=== PATIENT | female | born 1945 | race Caucasian/White ===

== ENCOUNTER 2018-11-23 18:29 | Inpatient (IN) | payer MEDICAID, MEDICARE ==
[~2018-11-23] VITALS: Ht 154.9 cm; Wt 88.9 kg
[2018-11-23] MEDS ORDERED: IV NS 0.9% 500 ML BAG IV ONE (19:00)
--- NOTE | 2018-11-23 19:00 | NUR ---
PT BROUGHT IN FROM HOME BY PARAMEDICS FOR SOB PT RUBBING CHEST GASPING FOR AIR WILL MONITOR AND IMPLEMENT ALL MD ORDERS
[2018-11-23 19:12] LABS: BASOPHILS # (AUTO) 0.1 /CMM (0.0-0.2); BASOPHILS % (AUTO) 0.6 % (0.0-2.0); EOSINOPHILS % (AUTO) 0.7 % (0.0-6.0); HEMATOCRIT 37 % (33-45); HEMOGLOBIN 12.3 g/dL (11.5-14.8); LYMPHOCYTES # (AUTO) 2.4 /CMM (0.8-4.8); LYMPHOCYTES % (AUTO) 26.2 % (20.0-44.0); MEAN CORPUSCULAR HGB CONC 33 g/dl (31.0-36.0); MEAN CORPUSCULAR VOLUME 96 fL (82-100); MONOCYTES # (AUTO) 0.8 /CMM (0.1-1.30); MONOCYTES % (AUTO) 9.1 % (2.0-12.0); NEUTROPHILS # (AUTO) 5.7 /CMM (1.8-8.9); NEUTROPHILS % (AUTO) 63.4 % (43.0-81.0); PLATELET COUNT (AUTO) 262 /CMM (150-450); RED BLOOD CELL COUNT(AUTO) 3.89 MIL/uL (4.0-5.2); WHITE BLOOD COUNT (AUTO) 9.1 K/uL (4.3-11.0)
[2018-11-23 19:23] LABS: CALCIUM, SERUM 9.5 mg/dL (8.5-10.1); CARBON DIOXIDE 28 mmol/L (21-32); CHLORIDE 104 mmol/L (98-107); CREATININE 0.8 mg/dL (0.6-1.3); GLUCOSE 91 mg/dL (74-106); POTASSIUM 3.6 mmol/L (3.5-5.1); SODIUM SERUM 138 mmol/L (136-145); UREA NITROGEN, BLOOD 15 mg/dL (7-18)
--- NOTE | 2018-11-23 19:25 | NUR ---
TECH AT BEDSIDE FOR EKG
--- NOTE | 2018-11-23 19:28 | NUR ---
RADIOLOGY AT BEDSIDE FOR XRAY
[2018-11-23 19:35] LABS: B-TYPE NATRIURETIC PEPTIDE 170 PG/ML (0-125)
--- NOTE | 2018-11-23 20:34 | NUR ---
GOT BED 109
--- NOTE | 2018-11-23 20:38 | NUR ---
[facility] PAGED
--- NOTE | 2018-11-23 21:18 | NUR ---
REPORT GIVEN TO ANA ROSA SMART FOR HYACINTH
[2018-11-23 22:00] VITALS: BP 203/85
--- NOTE | 2018-11-23 22:00 | NUR ---
CAFETERIA DIRECTOR NOTES RECEIVED PT FROM ER. PT A&OX4, CHINESE SPEAKING , PT PLACED ON TELE MONITOR SR, HR 80S. #20G IN L AC S/L. B/P ELEVATED. PT C/O FOR C/P 04/08. PT ORIENTED TO ROOM. ALL SAFETY PRECAUTIONS TAKEN, BED IN LOW AND LOCKED POSITION. CALL LIGHT WITH IN REACH. WILL CONT TO MONITOR.
[2018-11-23] MEDS ORDERED: ONDANSETRON HCL/PF 4 MG/2 ML VIAL IVP PRN (22:30)
[2018-11-23] MEDS ORDERED: ACETAMINOPHEN 325 MG TABLET PO PRN (22:30)
[2018-11-23] MEDS ORDERED: Z GUARD REMEDY 2 OZ OINT TP PRN (22:30)
[2018-11-23] MEDS ORDERED: MAGNESIUM HYDROXIDE 30 ML UDC PO PRN (22:30)
[2018-11-23] MEDS ORDERED: ZOLPIDEM TARTRATE 5 MG TABLET PO PRN (22:30)
[2018-11-23] MEDS: ATORVASTATIN 10 MG TABLET PO SCH (23:23)
[2018-11-23] MEDS: HYDROCODONE/APAP 5/325MG 1 EACH TABLET PO PRN (23:24)
[2018-11-23] MEDS: hydrALAZINE HCL IV 20 MG VIAL IV PRN (23:25)
[2018-11-23] MEDS ORDERED: ENOXAPARIN SODIUM 40 MG/0.4 ML DISP.SYRIN SQ SCH (23:30)
[2018-11-24] VITALS (8 sets, daily range): BP systolic 127–160; BP diastolic 55–78
[2018-11-24] MEDS: HYDROCODONE/APAP 5/325MG 1 EACH TABLET PO PRN (06:31)
--- NOTE | 2018-11-24 07:19 | NUR ---
RN CLOSING NOTES PT RESTING IN BED NO SIGNIFICANT CHANGE.ALL DUE MEDS GIVEN, ALL SAFETY PRECAUTION TAKEN. ALL NEEDS ANTICIPATED AND MET. WILL ENDORSE TO AM RN.
--- NOTE | 2018-11-24 08:00 | NUR ---
METAL BALER: pt.is A/Ox3, speaks Lithuanian, with [place] RT translation: chest pain in and out, now better 3-02/06, had fingers tingling, no headache, no legs pain, no SOB, no cough, no dizziness. No critical labs result reported. O2sat. over 95% on 2L n/c, SR, BP 148/76, Hdlz prn+, troponin is less 0.017, Ddimer1.24, DVT pump+, pt.is oriented for POC, waiting
[2018-11-24 08:36] LABS: BASOPHILS % (AUTO) 0.4 % (0.0-2.0); EOSINOPHILS % (AUTO) 0.7 % (0.0-6.0); HEMATOCRIT 36 % (33-45); HEMOGLOBIN 11.6 g/dL (11.5-14.8); LYMPHOCYTES # (AUTO) 1.3 /CMM (0.8-4.8); LYMPHOCYTES % (AUTO) 21.7 % (20.0-44.0); MEAN CORPUSCULAR HGB CONC 33 g/dl (31.0-36.0); MEAN CORPUSCULAR VOLUME 97 fL (82-100); MONOCYTES # (AUTO) 0.5 /CMM (0.1-1.30); MONOCYTES % (AUTO) 8.4 % (2.0-12.0); NEUTROPHILS % (AUTO) 68.8 % (43.0-81.0); PLATELET COUNT (AUTO) 235 /CMM (150-450); RED BLOOD CELL COUNT(AUTO) 3.68 MIL/uL (4.0-5.2); WHITE BLOOD COUNT (AUTO) 5.8 K/uL (4.3-11.0)
[2018-11-24 08:56] LABS: CALCIUM, SERUM 8.6 mg/dL (8.5-10.1); CARBON DIOXIDE 26 mmol/L (21-32); CHLORIDE 106 mmol/L (98-107); CREATININE 0.8 mg/dL (0.6-1.3); GLUCOSE 120 mg/dL (74-106); MAGNESIUM 2.2 mg/dL (1.8-2.4); PHOSPHORUS 4.2 mg/dL (2.5-4.9); POTASSIUM 4.1 mmol/L (3.5-5.1); SODIUM SERUM 140 mmol/L (136-145); UREA NITROGEN, BLOOD 15 mg/dL (7-18)
[2018-11-24] MEDS: ASPIRIN 81 MG TAB.CHEW PO SCH (08:59)
[2018-11-24 09:00] LABS: CHOLESTEROL 178 mg/dL (<200); HDL CHOLESTEROL 56 mg/dL (40-60); LDL 110 mg/dL (0-99); TRIGLYCERIDES 65 mg/dL (30-150)
[2018-11-24] MEDS ORDERED: UMEC1BLS INH (09:02)
[2018-11-24] MEDS ORDERED: ATOR10TA PO (09:02)
[2018-11-24] MEDS ORDERED: OMEP20CA10 PO (09:02)
[2018-11-24] MEDS ORDERED: ASPI-1152 PO (09:02)
[2018-11-24] MEDS ORDERED: LORA0.5T PO (09:02)
[2018-11-24] MEDS ORDERED: IRBE150T28 PO (09:02)
[2018-11-24] MEDS ORDERED: MELO-105 PO (09:02)
[2018-11-24] MEDS ORDERED: HYDR-4077 PO (09:02)
[2018-11-24] MEDS ORDERED: GABA-532 PO (09:02)
[2018-11-24] MEDS ORDERED: ERGO500040 PO (09:02)
[2018-11-24] MEDS ORDERED: FURO40TA5 PO (09:02)
[2018-11-24] MEDS ORDERED: POTA8TAB8 PO (09:02)
--- NOTE | 2018-11-24 09:10 | NUR ---
TELEGRAPHIC TYPEWRITER MECHANIC: is in room with [place] Island[place] ornamental ironworker, updated with pt.current condition, VS, see new orders
[2018-11-24] MEDS ORDERED: CT SWABBABLE VALVE TRANS SET 1 EA INFUS.SET MC ONE (09:47)
[2018-11-24] MEDS ORDERED: IOHEXOL-350 100 ML VIAL IV ONE (09:47)
[2018-11-24] MEDS ORDERED: IV NS 0.9% 250 ML IV ONE (09:47)
--- NOTE | 2018-11-24 10:57 | NUR ---
RN MASHA: CTA is done/tolerated well, notified pt.daughter re pt.current condition, VS, orders, POC
[2018-11-24] MEDS: PANTOPRAZOLE 40 MG TABLET.DR PO SCH (11:11)
[2018-11-24] MEDS: METOPROLOL TARTRATE 25 MG TABLET PO SCH ×2 (11:52→16:48)
--- NOTE | 2018-11-24 13:00 | NUR ---
RN MASHA: pt.daughter is in room, updated with VS, orders, CTA done, POC, meds
--- NOTE | 2018-11-24 13:43 | NUR ---
RN MASHA: pt.denies any pain by British translation. DIANE Mccann notified re pt.history, VS, orders, labs, CTA, pt.daughter needs to speak regarding POC/got her phone#, works with DIANE Moore today
--- NOTE | 2018-11-24 14:24 | NUR ---
RN MASHA: Oscar OIL AND GAS EXPLORATION TECHNICIAN is in room, updated with all above, called/spoke with pt.daughter
--- NOTE | 2018-11-24 17:15 | NUR ---
RN MASHA: pt.is rest, no pain, no c/o, no SOB, SR, O2sat. over 94%, SBP over 100 below 160, PM care done by BENEFITS MANAGER reported, refused to use legs DVT pump
--- NOTE | 2018-11-24 19:10 | NUR ---
TELE/RN INITIAL NOTES RECEIVED PT IN BED, A/OX3, KINYARWANDA SPEAKING. SINUS RENETTA HR 58 ON TELEMONITOR. ON 2L O2 VIA NC, NO SOB NOTED. DENIES PAIN AT THIS TIME. HOB ELEVATED/ (L)AC G20 HEPLOCK INTACT AND PATENT. SAFETY MEASURES IN PLACED. CALL LIGHT WITHIN EASY REACH. WILL CONT TO MONITOR
[2018-11-24] MEDS ORDERED: ENOXAPARIN SODIUM 40 MG/0.4 ML DISP.SYRIN SQ SCH (21:00)
[2018-11-24] MEDS: ATORVASTATIN 10 MG TABLET PO SCH (21:08)
[2018-11-25] VITALS: BP 131/69
[2018-11-25] MEDS: METOPROLOL TARTRATE 25 MG TABLET PO SCH ×3 (00:02→12:21)
[2018-11-25 04:00] VITALS: BP_SYST 109; BP_SYST 121; BP_DIAS 47; BP_DIAS 60
--- NOTE | 2018-11-25 06:47 | NUR ---
RN NOTES PT IN STABLE CONDITION. NO ACUTE CHANGES NOTED. ALL NEEDS ANTICIPATED. ALL NEEDS ANTICIPATED. SAFETY MEASURES OBSERVED AT ALL TIMES. ENDORSED TO AM SHIFT RN FOR HYACINTH
[2018-11-25 08:00] VITALS: BP_SYST 156; BP_SYST 162; BP_DIAS 63; BP_DIAS 79
--- NOTE | 2018-11-25 08:00 | NUR ---
ENVIRONMENTAL COMPLIANCE OFFICER NOTE PATIENT IN BED ,C\O DIZZINESS AND SHAKING ON TELE MONITOR SR , ALERT ORIENTED X3 , LT AC HL INTACT, BLOOD SUGAR 87 MG\DL .BREAKFAST GIVEN, CALL LIGHT WITHIN REACH.NO SOB NOTED BP, RECHECKED BP 181/75 AND LATTER ON IS 163/64 ,HYDRALAZINE IVP GIVEN ORDERED
[2018-11-25] MEDS: ASPIRIN 81 MG TAB.CHEW PO SCH (08:14)
[2018-11-25] MEDS: PANTOPRAZOLE 40 MG TABLET.DR PO SCH (08:14)
[2018-11-25] MEDS: hydrALAZINE HCL IV 20 MG VIAL IV PRN (08:22)
--- NOTE | 2018-11-25 09:00 | NUR ---
TELE RNNNOTE SPOKE WITH DR SORIANO NOTIFIED THAT EARLIER BP WAS 181/75 AND PATIENT DID NOT FEEL WELL STATED THAT WILL CHECK BP MEDS , DR SORIANO SPOKE WITH PATIENT AT BEDSIDE .WILL F\U
[2018-11-25] MEDS ORDERED: VALSARTAN 80 MG TABLET PO SCH (10:00)
[2018-11-25] MEDS ORDERED: LORAZEPAM 0.5 MG TABLET PO ONE (10:30)
--- NOTE | 2018-11-25 10:36 | NUR ---
ENDOSCOPY REGISTERED NURSE NOTE SEEN BY ESTIVEN OSEGUERA CLAIMS PROCESSOR WITH ORDER OK TO DISCHARGE HOME ORDER CARRIED OUT. ALSO NOTIFYED THAT EASIER P WAS ANXIOUS
[2018-11-25 12:00] VITALS: BP_SYST 160; BP_SYST 163; BP_DIAS 60; BP_DIAS 68
--- NOTE | 2018-11-25 12:00 | NUR ---
MATERIAL CONTROL CLERK NOTE HAVING DINER , NOT IN DISTRESS WILL CONT TO MONITOR CLOSELY
[2018-11-25 12:21] VITALS: BP 155/76
--- NOTE | 2018-11-25 13:18 | NUR ---
COMPRESS ENGINEER NOTE DISCHARGE INSTRUCTION GIVEN , UNDERSTOOD, DAUGHTER AT BEDSIDE . TELE REMOVED, HL LT AC REMOVED,NO BLEEDING NO S\S INFECTION NOTED ,DRY DRESSING APPALLED , INSTRUCTED HOW TO TAKE HOME MEDS AND POSSIBLE SIDE EFFECTS , INSTRUCTED TO MONITOR PATIENT WEIGHT ,BELONGING SIGNED ,INFORM PATIENT FOLLOW UP WITH PRIMARY CARE DOCTOR NEXT WEEK ,TAKEN TO LOBBY ON W\C WITH STABLE CONDITION
[2018-11-25] MEDS ORDERED: DOXAZOSIN MESYLATE (1 MG) 1 MG TABLET PO SCH (22:00)
== END 2018-11-25 13:13 | disposition home or self-care (01) | DRG 199 ==
LOC: ER 18:34 → TELE1 22:01 → MEDSG1 11-25 10:01
PROVIDERS: ADMIT Nurse Practitioner Acute Care; ATTEND Nurse Practitioner Acute Care
DX: I16.0 Hypertensive urgency (principal); D68.59 Other primary thrombophilia; I50.32 Chronic diastolic (congestive) heart failure; E44.1 Mild protein-calorie malnutrition; E66.01 Morbid (severe) obesity due to excess calories; M94.0 Chondrocostal junction syndrome [Tietze]; I11.0 Hypertensive heart disease with heart failure; Z79.82 Long term (current) use of aspirin; Z90.49 Acquired absence of other specified parts of digestive tract; K21.9 Gastro-esophageal reflux disease without esophagitis; F41.9 Anxiety disorder, unspecified; Z68.37 Body mass index [BMI] 37.0-37.9, adult; Z71.3 Dietary counseling and surveillance
CPT/HCPCS: 36415; 71045-TC; 80048-TC; 80061-TC; 82962-TC; 83735-TC; 83880; 84100-TC; 84484-TC; 85025-TC; 85378-TC; 85730-TC; 87081-TC; 93307-TC; G0378; J0360; J1650; J7040; J7050; Q9967